=== PATIENT | male | born 1990 | race African-American/Black ===

== ENCOUNTER 2017-08-30 11:41 | Emergency (ER) | payer OTHER ==
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
== END 2017-08-30 11:59 | disposition home or self-care (01) ==
LOC: MW.ED 11:41
DX: S60.512A Abrasion of left hand, initial encounter (principal); V59.9XXA Occupant (driver) (passenger) of pick-up truck or van injured in unspecified traffic accident, initial encounter
CPT/HCPCS: 99283